=== PATIENT | female | born 1960 | race Caucasian/White ===

== ENCOUNTER 2018-06-03 14:58 | Inpatient (IN) | payer MEDICAID ==
[~2018-06-03] VITALS: Ht 167.6 cm; Wt 84.1 kg
[~2018-06-03 14:58] MED LIST: CLON-527 PO; EST1T PO; FLUO20CA39 PO; HYDR-3964 PO; IBUP-1986 PO; LISI1TAB9 PO; OMEP-84 PO
[2018-06-03] MEDS ORDERED: naproxen 500mg tablet PO ONE (16:15)
[2018-06-03 16:37] LABS: CLARITY,URINE CLEAR (Clear); COLOR,URINE YELLOW (Yellow); GLUCOSE, URINE NEGATIVE (Neg); KETONES,URINE NEGATIVE (Neg); LEUKOCYTE ESTERASE ,URINE NEGATIVE (Neg); NITRITES, URINE NEGATIVE (Neg); OCCULT BLOOD,URINE NEGATIVE (Neg); PROTEIN,URINE NEGATIVE (Neg); UROBILINOGEN,URINE 0.2 E.U/dL (0.2-1.0)
[2018-06-03 16:39] LABS: UA COLLECTION TYPE CLN CATCH MIDSTREAM
[2018-06-03 17:11] LABS: ALANINE AMINOTRANSFERASE 22 U/L (12-78); ALBUMIN 3.2 G/DL (3.4-5.0); ALBUMIN/GLOBULIN RATIO 0.9 (1.1-1.5); ALKALINE PHOSPHATASE 89 IU/L (46-116); ANION GAP 9 (8-16); ASPARTATE AMINO TRANSFERASE 13 U/L (10-37); BASOPHILS % (AUTO) 0.5 % (0-1); BILIRUBIN,TOTAL 0.3 MG/DL (0.1-1.0); BLOOD UREA NITROGEN 10 MG/DL (7-18); BUN/CREATININE RATIO 13.9 (6.6-38.0); CALCIUM 8.8 MG/DL (8.5-10.1); CHLORIDE 106 MMOL/L (99-107); CREATININE 0.72 MG/DL (0.40-0.90); EOSINOPHILS # (AUTO) 0.2 X10'3 (0-0.9); EOSINOPHILS % (AUTO) 2.2 % (0-6); GLUCOSE 78 MG/DL (70-104); HEMATOCRIT 40.7 % (35.0-45.0); HEMOGLOBIN 13.7 g/dl (12.0-16.0); LIPASE 1371 U/L (73-393); LYMPHOCYTES # (AUTO) 1.9 X10'3 (1.1-4.8); LYMPHOCYTES % (AUTO) 20.2 % (21-51); MAGNESIUM 1.9 MG/DL (1.5-2.4); MEAN CORPUSCULAR HEMOGLOBIN 30.6 PG (27.0-31.0); MEAN CORPUSCULAR HGB CONC 33.6 g/dL (33.0-36.5); MEAN CORPUSCULAR VOLUME 91.1 FL (78-98); MEAN PLATELET VOLUME 9.7 FL (7.4-10.4); MONOCYTES # (AUTO) 0.9 X10'3 (0-0.9); MONOCYTES % (AUTO) 9.1 % (2-12); NEUTROPHILS # (AUTO) 6.4 X10'3 (1.8-7.7); PLATELET COUNT 219 X10'3 (140-440); POTASSIUM 3.6 MMOL/L (3.5-5.1); RED BLOOD COUNT 4.47 X10'6 (4.20-5.60); RED CELL DISTRIBUTION WIDTH 13.6 % (11.5-14.5); SODIUM 142 MMOL/L (135-145); TOTAL CARBON DIOXIDE 26.8 MMOL/L (24-32); TOTAL PROTEIN 6.9 G/DL (6.4-8.2); WHITE BLOOD COUNT 9.4 X10'3 (4.5-11.0); eGFR 84 ML/MIN
[2018-06-03] MEDS ORDERED: morphine 4 MG/ML inj SYRINge IV ONE ×2 (17:25→17:55)
[2018-06-03] MEDS ORDERED: normal saline 1000ML IV soln IVB ONE ×2 (17:25→17:55)
[2018-06-03 17:43] LABS: ETHANOL < 0.010 GM/DL (0.0-0.010)
[2018-06-03] MEDS: normal saline 1000ml 1,000 ML IV SCH (17:51)
[2018-06-03] MEDS ORDERED: morphine 2 MG/ML inj. syringe IV PRN (17:55)
[2018-06-03] MEDS ORDERED: magnesium hydroxide 30ml (MOM) UD suspension PO PRN (17:55)
[2018-06-03] MEDS ORDERED: ondansetron/PF 4mg/2ml inj IV PRN (17:55)
[2018-06-03] MEDS ORDERED: mag hydrox/Alum hydrox/simeth 30ml oral suspension PO PRN (17:55)
[2018-06-03] MEDS ORDERED: acetaminophen 325mg tablet PO PRN (17:55)
[2018-06-03 19:22] LABS: URINE AMPHETAMINE SCREEN NEGATIVE (Neg); URINE BARBITUATE SCREEN NEGATIVE (Neg); URINE BENZODIAZEPINES SCREEN NEGATIVE (Neg); URINE CANNABINOID SCREEN POSITIVE (Neg); URINE COCAINE SCREEN NEGATIVE (Neg); URINE METHADONE SCREEN NEGATIVE (Neg); URINE OPIATE SCREEN NEGATIVE (Neg); URINE PHENCYCLIDINE SCREEN NEGATIVE (Neg)
--- NOTE | 2018-06-03 19:32 | NUR ---
STATES PAIN TOLEARABLE AT 4/10 AFTER MORPHINE.
[2018-06-03 20:32] VITALS: BP 144/81
[2018-06-03 22:00] VITALS: BP 104/57
[2018-06-03] MEDS: heparin, porcine 5000 units/ml vial SQ SCH (22:25)
[2018-06-03] MEDS: morphine 2 MG/ML inj. syringe IV PRN (22:25)
[2018-06-04 02:00] VITALS: BP 97/49
[2018-06-04] MEDS: morphine 2 MG/ML inj. syringe IV PRN ×5 (02:47→23:20)
[2018-06-04] MEDS: normal saline 1000ml 1,000 ML IV SCH ×3 (02:47→13:51)
[2018-06-04 03:57] VITALS: BP 103/58
--- NOTE | 2018-06-04 06:31 | NUR ---
REPORT GIVEN TO EMILIANO ZENG.
[2018-06-04 07:19] LABS: BASOPHILS % (AUTO) 0.8 % (0-1); EOSINOPHILS # (AUTO) 0.2 X10'3 (0-0.9); EOSINOPHILS % (AUTO) 4.1 % (0-6); HEMATOCRIT 37.7 % (35.0-45.0); HEMOGLOBIN 12.8 g/dl (12.0-16.0); LYMPHOCYTES # (AUTO) 1.8 X10'3 (1.1-4.8); LYMPHOCYTES % (AUTO) 34.2 % (21-51); MEAN CORPUSCULAR HEMOGLOBIN 31.2 PG (27.0-31.0); MEAN CORPUSCULAR HGB CONC 33.9 g/dL (33.0-36.5); MEAN CORPUSCULAR VOLUME 91.9 FL (78-98); MEAN PLATELET VOLUME 9.7 FL (7.4-10.4); MONOCYTES # (AUTO) 0.5 X10'3 (0-0.9); NEUTROPHILS # (AUTO) 2.7 X10'3 (1.8-7.7); NEUTROPHILS % (AUTO) 50.9 % (42-75); PLATELET COUNT 185 X10'3 (140-440); RED CELL DISTRIBUTION WIDTH 13.4 % (11.5-14.5); WHITE BLOOD COUNT 5.2 X10'3 (4.5-11.0)
[2018-06-04 07:37] LABS: ALANINE AMINOTRANSFERASE 243 U/L (12-78); ALBUMIN 2.7 G/DL (3.4-5.0); ALBUMIN/GLOBULIN RATIO 0.8 (1.1-1.5); ALKALINE PHOSPHATASE 102 IU/L (46-116); ANION GAP 5 (8-16); ASPARTATE AMINO TRANSFERASE 289 U/L (10-37); BILIRUBIN,TOTAL 0.7 MG/DL (0.1-1.0); BLOOD UREA NITROGEN 8 MG/DL (7-18); BUN/CREATININE RATIO 11.8 (6.6-38.0); CALCIUM 8.1 MG/DL (8.5-10.1); CHLORIDE 110 MMOL/L (99-107); CREATININE 0.68 MG/DL (0.40-0.90); GLUCOSE 95 MG/DL (70-104); POTASSIUM 3.9 MMOL/L (3.5-5.1); SODIUM 142 MMOL/L (135-145); TOTAL CARBON DIOXIDE 26.6 MMOL/L (24-32); TOTAL PROTEIN 6.1 G/DL (6.4-8.2); eGFR 90 ML/MIN
--- NOTE | 2018-06-04 08:13 | NUR ---
upon entering room to care for my patient in A bed, B bed IV was alarming from air bubble. Attempt to fix alarm. Patient is argumentative, rude, verbally abusive! Primary RN notified
[2018-06-04] MEDS: heparin, porcine 5000 units/ml vial SQ SCH ×2 (08:22→19:16)
[2018-06-04 09:24] LABS: LIPASE 429 U/L (73-393)
[2018-06-04 10:00] VITALS: BP 118/71
[2018-06-04] MEDS ORDERED: nicotine 14mg patch - 24hr TD PRN (10:00)
[2018-06-04] MEDS ORDERED: TRAZ-219 PO (10:22)
[2018-06-04 13:43] LABS: CHOL/HDL RATIO 5.6 (0.00-4.99); CHOLESTEROL 202 MG/DL (0-200); HDL CHOLESTEROL 36 MG/DL (35-60); LDL CHOLESTEROL 144 MG/DL (50-100); TRIGLYCERIDES 103 MG/DL (20-135)
[2018-06-04 18:30] VITALS: BP 117/57
[2018-06-04] MEDS ORDERED: traZODone 50mg tablet PO PRN (21:00)
[2018-06-04 23:00] VITALS: BP 112/53
[2018-06-05] MEDS: normal saline 1000ml 1,000 ML IV SCH ×2 (00:16→09:40)
[2018-06-05 05:17] LABS: BASOPHILS % (AUTO) 0.7 % (0-1); EOSINOPHILS # (AUTO) 0.2 X10'3 (0-0.9); HEMOGLOBIN 12.8 g/dl (12.0-16.0); LYMPHOCYTES # (AUTO) 1.7 X10'3 (1.1-4.8); LYMPHOCYTES % (AUTO) 31.2 % (21-51); MEAN CORPUSCULAR HEMOGLOBIN 30.8 PG (27.0-31.0); MEAN CORPUSCULAR HGB CONC 33.8 g/dL (33.0-36.5); MEAN CORPUSCULAR VOLUME 91.3 FL (78-98); MEAN PLATELET VOLUME 9.6 FL (7.4-10.4); MONOCYTES # (AUTO) 0.4 X10'3 (0-0.9); MONOCYTES % (AUTO) 8.2 % (2-12); NEUTROPHILS % (AUTO) 55.9 % (42-75); PLATELET COUNT 190 X10'3 (140-440); RED BLOOD COUNT 4.16 X10'6 (4.20-5.60); RED CELL DISTRIBUTION WIDTH 13.2 % (11.5-14.5); WHITE BLOOD COUNT 5.4 X10'3 (4.5-11.0)
[2018-06-05 05:37] LABS: ALANINE AMINOTRANSFERASE 195 U/L (12-78); ALBUMIN 2.9 G/DL (3.4-5.0); ALBUMIN/GLOBULIN RATIO 0.8 (1.1-1.5); ALKALINE PHOSPHATASE 116 IU/L (46-116); ANION GAP 8 (8-16); ASPARTATE AMINO TRANSFERASE 93 U/L (10-37); BILIRUBIN,TOTAL 0.4 MG/DL (0.1-1.0); BLOOD UREA NITROGEN 7 MG/DL (7-18); BUN/CREATININE RATIO 10.3 (6.6-38.0); CALCIUM 8.5 MG/DL (8.5-10.1); CHLORIDE 108 MMOL/L (99-107); CREATININE 0.68 MG/DL (0.40-0.90); GLUCOSE 96 MG/DL (70-104); SODIUM 141 MMOL/L (135-145); TOTAL CARBON DIOXIDE 25.4 MMOL/L (24-32); TOTAL PROTEIN 6.4 G/DL (6.4-8.2); eGFR 90 ML/MIN
--- NOTE | 2018-06-05 06:24 | NUR ---
Problems reprioritized. Patient report given, questions answered & plan of care reviewed with JAMILAH CONNOR RN. Addendum: 06/05/18 at 0625 by Houston Fermin RN Amended: Links added.
[2018-06-05] MEDS: heparin, porcine 5000 units/ml vial SQ SCH (07:09)
[2018-06-05] MEDS: morphine 2 MG/ML inj. syringe IV PRN ×2 (07:09→12:11)
[2018-06-05] MEDS ORDERED: pantoprazole 40mg Tablet.DR PO SCH (07:30)
--- NOTE | 2018-06-05 14:05 | NUR ---
RESPONDED TO PT CALL LIGHT AND PT WAS SITTING AT THE EDGE OF THE BED. PT STATED "IM NOT WAITING 2 HOURS TO GET THIS TEST DONE, I WANT TO GO HOME I HAVE ALREADY ATE FOOD FROM HOME AND AM GOING TO LEAVE, TAKE THIS IV OUT PLEASE." I ASKED IF I COULD GO TO CALL THE DR AND SHE SAID "NO THANK YOU IM LEAVING NOW". IV REMOVED AND AMA PAPER SIGNED ON THE WAY DOWN THE [address]. PT EDUCATED ON RISKS AND BENEFIT OF STAYING.
== END 2018-06-05 13:55 | disposition left against medical advice (07) | DRG 282 ==
LOC: ER 14:59 → ORTHO 4S 17:51 → EDBEDREQSVC 19:47 → CMPBEDREQ 06-04 00:22 → ORTHO 4S 06-04 04:55
PROVIDERS: ADMIT Family Medicine; ATTEND Family Medicine
DX: K85.90 Acute pancreatitis without necrosis or infection, unspecified (principal); E66.01 Morbid (severe) obesity due to excess calories; F12.90 Cannabis use, unspecified, uncomplicated; F17.210 Nicotine dependence, cigarettes, uncomplicated; G89.29 Other chronic pain; I10 Essential (primary) hypertension; K21.9 Gastro-esophageal reflux disease without esophagitis; F32.9 Major depressive disorder, single episode, unspecified; F41.9 Anxiety disorder, unspecified; M54.9 Dorsalgia, unspecified; M48.061 Spinal stenosis, lumbar region without neurogenic claudication; M54.10 Radiculopathy, site unspecified; Z68.29 Body mass index [BMI] 29.0-29.9, adult; Z90.710 Acquired absence of both cervix and uterus; Z79.899 Other long term (current) drug therapy; Z90.49 Acquired absence of other specified parts of digestive tract
CPT/HCPCS: 36415; 72131; 76700; 80053; 80061; 80305; 80320; 81003; 83690; 83735; 85025; 87070; 93005; 99285; G0378; J1644; J2270; J7030

== ENCOUNTER 2020-06-03 16:43 | Inpatient (IN) | payer MEDICAID ==
[~2020-06-03] VITALS: Ht 167.6 cm; Wt 84.0 kg
[~2020-06-03 16:43] MED LIST changes: -CLON-527 PO; -EST1T PO; -FLUO20CA39 PO; -HYDR-3964 PO; -LISI1TAB9 PO; +TRAZ-256 PO
--- NOTE | 2020-06-03 16:58 | NUR ---
ASSISTING RN WITH PT CARE, REPORT GIVEN TO DAVE CUMMINGS
[2020-06-03] MEDS ORDERED: normal saline 1000ML IV soln IV ONE (18:55)
[2020-06-03 19:06] LABS: BASOPHILS # (AUTO) 0.1 X10'3 (0-0.2); BASOPHILS % (AUTO) 0.7 % (0-1); EOSINOPHILS # (AUTO) 0.2 X10'3 (0-0.9); EOSINOPHILS % (AUTO) 1.5 % (0-6); HEMATOCRIT 39.5 % (35.0-45.0); HEMOGLOBIN 13.2 g/dl (12.0-16.0); LYMPHOCYTES # (AUTO) 1.2 X10'3 (1.1-4.8); LYMPHOCYTES % (AUTO) 8.5 % (21-51); MEAN CORPUSCULAR HEMOGLOBIN 30.1 PG (27.0-31.0); MEAN CORPUSCULAR HGB CONC 33.5 g/dL (33.0-36.5); MEAN CORPUSCULAR VOLUME 89.9 FL (78-98); MEAN PLATELET VOLUME 9.9 FL (7.4-10.4); MONOCYTES # (AUTO) 0.9 X10'3 (0-0.9); MONOCYTES % (AUTO) 6.1 % (2-12); NEUTROPHILS # (AUTO) 11.8 X10'3 (1.8-7.7); NEUTROPHILS % (AUTO) 83.2 % (42-75); PLATELET COUNT 263 X10'3 (140-440); RED CELL DISTRIBUTION WIDTH 14.9 % (11.5-14.5); WHITE BLOOD COUNT 14.1 X10'3 (4.5-11.0)
[2020-06-03 19:14] LABS: ALANINE AMINOTRANSFERASE 39 U/L (12-78); ALBUMIN 2.3 G/DL (3.4-5.0); ALBUMIN/GLOBULIN RATIO 0.5 (1.1-1.5); ALKALINE PHOSPHATASE 170 IU/L (46-116); ANION GAP 11 (8-16); ASPARTATE AMINO TRANSFERASE 42 U/L (10-37); BILIRUBIN,TOTAL 0.6 MG/DL (0.1-1.0); BLOOD UREA NITROGEN 14 MG/DL (7-18); BUN/CREATININE RATIO 13.7 (6.6-38.0); CALCIUM 8.3 MG/DL (8.5-10.1); CHLORIDE 99 MMOL/L (99-107); CREATININE 1.02 MG/DL (0.40-0.90); GLUCOSE 140 MG/DL (70-104); MAGNESIUM 1.7 MG/DL (1.5-2.4); SODIUM 135 MMOL/L (135-145); TOTAL CARBON DIOXIDE 24.9 MMOL/L (24-32); TOTAL PROTEIN 7.3 G/DL (6.4-8.2); eGFR 56 ML/MIN
--- NOTE | 2020-06-03 19:16 | NUR ---
Patient is with Dr. Martin
[2020-06-03 19:17] LABS: POTASSIUM 3.1 MMOL/L (3.5-5.1)
[2020-06-03] MEDS ORDERED: proCHLORperazine 10 MG/2 ml inj IV ONE (19:30)
[2020-06-03] MEDS ORDERED: CefTRIAXone 2gm/D5W 50ml BAG 50 ML IV ONE (19:30)
[2020-06-03] MEDS ORDERED: magnesium hydroxide 30ml (MOM) UD suspension PO PRN (19:35)
[2020-06-03] MEDS ORDERED: mag hydrox/Alum hydrox/simeth 30ml oral suspension PO PRN (19:35)
[2020-06-03] MEDS ORDERED: vancomycin/NS 1 GM ADD-VANTAGE 250 ML X 1 DOSE IV ONE (19:35)
[2020-06-03] MEDS ORDERED: acetaminophen 325mg tablet PO PRN (19:35)
[2020-06-03] MEDS ORDERED: potassium Cl 40MEQ/1/2NS 520ml 520 ML IV PRN ×2 (19:35)
[2020-06-03] MEDS ORDERED: HYDROcodone/acetaminophen 5mg/325mg tablet PO PRN (19:35)
[2020-06-03] MEDS ORDERED: ondansetron/PF 4mg/2ml inj IV PRN (19:35)
[2020-06-03 19:58] LABS: HEMOGLOBIN A1C 6.1 % (4.5-6.2)
[2020-06-03] MEDS: K and/or MAG REPLACEMENT MC SCH (20:00)
[2020-06-03] MEDS: morphine 2 MG/ML inj. syringe IV PRN ×2 (20:19→22:18)
[2020-06-03] MEDS: normal saline 1000ml 1,000 ML IV SCH (20:22)
[2020-06-03] MEDS: heparin, porcine 5000 units/ml vial SQ SCH (21:23)
--- NOTE | 2020-06-03 22:00 | NUR ---
Patient in room [facility]. I have received report from Danielle CUMMINGS and had the opportunity to ask questions and assume patient care.
[2020-06-03 22:15] VITALS: BP 135/72
[2020-06-03 23:03] LABS: CLARITY,URINE CLEAR (Clear); COLOR,URINE YELLOW (Yellow); GLUCOSE, URINE NEGATIVE (Neg); KETONES,URINE NEGATIVE (Neg); LEUKOCYTE ESTERASE ,URINE NEGATIVE (Neg); NITRITES, URINE NEGATIVE (Neg); OCCULT BLOOD,URINE TRACE-INTACT (Neg); PH,URINE 5.5 (4.8-8.0); PROTEIN,URINE TRACE mg/dl (Neg); URINE HCG NEGATIVE (NEG)
[2020-06-03 23:09] LABS: UA COLLECTION TYPE CLN CATCH MIDSTREAM
[2020-06-03 23:11] LABS: BACTERIA,URINE 1+ /HPF (Neg); MUCUS STRANDS MODERATE /LPF (Neg); RBC,URINE NONE SEEN /HPF (0-2); SQUAMOUS EPITHELIAL CELL,UR MODERATE /LPF (FEW); WBC,URINE 0-4 /HPF (0-4)
[2020-06-03] MEDS: potassium Cl 20 mEq SR tablet PO PRN (23:16)
[2020-06-03] MEDS: gabapentin 300mg capsule PO SCH (23:16)
[2020-06-04] VITALS: BP 117/71
[2020-06-04] MEDS ORDERED: GABA300C PO (02:09)
[2020-06-04] MEDS ORDERED: FLUO-167 PO (02:09)
[2020-06-04] MEDS: HYDROcodone/acetaminophen 10/325mg tab PO PRN ×3 (03:28→17:37)
[2020-06-04] MEDS: potassium Cl 20 mEq SR tablet PO PRN ×4 (03:28→21:27)
[2020-06-04] MEDS: normal saline 1000ml 1,000 ML IV SCH ×3 (04:59→21:22)
[2020-06-04 06:06] LABS: BASOPHILS % (AUTO) 0.2 % (0-1); EOSINOPHILS # (AUTO) 0.1 X10'3 (0-0.9); EOSINOPHILS % (AUTO) 0.7 % (0-6); HEMATOCRIT 32.9 % (35.0-45.0); HEMOGLOBIN 10.8 g/dl (12.0-16.0); LYMPHOCYTES # (AUTO) 0.9 X10'3 (1.1-4.8); LYMPHOCYTES % (AUTO) 6.9 % (21-51); MEAN CORPUSCULAR HEMOGLOBIN 29.1 PG (27.0-31.0); MEAN CORPUSCULAR HGB CONC 32.9 g/dL (33.0-36.5); MEAN CORPUSCULAR VOLUME 88.6 FL (78-98); MEAN PLATELET VOLUME 9.1 FL (7.4-10.4); MONOCYTES # (AUTO) 1.1 X10'3 (0-0.9); MONOCYTES % (AUTO) 8.6 % (2-12); NEUTROPHILS # (AUTO) 11.2 X10'3 (1.8-7.7); NEUTROPHILS % (AUTO) 83.6 % (42-75); PLATELET COUNT 225 X10'3 (140-440); RED BLOOD COUNT 3.71 X10'6 (4.20-5.60); RED CELL DISTRIBUTION WIDTH 14.7 % (11.5-14.5); WHITE BLOOD COUNT 13.3 X10'3 (4.5-11.0)
[2020-06-04 06:08] LABS: ALANINE AMINOTRANSFERASE 38 U/L (12-78); ALBUMIN 1.7 G/DL (3.4-5.0); ALBUMIN/GLOBULIN RATIO 0.4 (1.1-1.5); ALKALINE PHOSPHATASE 148 IU/L (46-116); ANION GAP 11 (8-16); ASPARTATE AMINO TRANSFERASE 34 U/L (10-37); BILIRUBIN,TOTAL 0.7 MG/DL (0.1-1.0); BLOOD UREA NITROGEN 9 MG/DL (7-18); BUN/CREATININE RATIO 9.1 (6.6-38.0); CALCIUM 7.7 MG/DL (8.5-10.1); CHLORIDE 103 MMOL/L (99-107); CREATININE 0.99 MG/DL (0.40-0.90); GLUCOSE 174 MG/DL (70-104); SODIUM 137 MMOL/L (135-145); TOTAL CARBON DIOXIDE 23.3 MMOL/L (24-32); TOTAL PROTEIN 5.8 G/DL (6.4-8.2); eGFR 58 ML/MIN
[2020-06-04 06:20] LABS: POTASSIUM 2.7 MMOL/L (3.5-5.1)
--- NOTE | 2020-06-04 06:30 | NUR ---
Problems reprioritized. Patient report given, questions answered & plan of care reviewed with Trey RN.
--- NOTE | 2020-06-04 06:32 | NUR ---
Patient in room [facility]. I have received report from Chely CUMMINGS and had the opportunity to ask questions and assume patient care.
[2020-06-04 07:04] VITALS: BP 114/65
--- NOTE | 2020-06-04 07:30 | NUR ---
PAGER ID: [phone] MESSAGE: Trey Surg [id number] re: Tabatha MUÑIZ 348b Patient has K of 2.7. Will start replacement at this time. Thanks
[2020-06-04] MEDS ORDERED: CefTRIAXone/D5W-Rocephin 1gm 50 ML IV SCH (08:00)
[2020-06-04] MEDS ORDERED: FLUoxetine 20mg capsule PO SCH (08:00)
[2020-06-04] MEDS: K and/or MAG REPLACEMENT MC SCH ×3 (08:00→20:00)
[2020-06-04] MEDS: gabapentin 300mg capsule PO SCH ×3 (08:49→21:23)
[2020-06-04] MEDS: heparin, porcine 5000 units/ml vial SQ SCH ×2 (09:07→21:24)
[2020-06-04] MEDS ORDERED: magnesium Cl slow-release 64mg tablet PO PRN (09:35)
[2020-06-04] MEDS ORDERED: magnesium 4gm in 100ml NS 100 ML IV PRN (09:35)
[2020-06-04] MEDS ORDERED: traZODone 50mg tablet PO PRN (09:35)
[2020-06-04 10:30] VITALS: BP 125/68
--- NOTE | 2020-06-04 10:50 | NUR ---
Last BM on patient reports no Bowel movement today Addendum: 06/04/20 at 1053 by Emmanuel DEWEY Amended: Links added.
[2020-06-04] MEDS: vancomycin/NS 1 GM ADD-VANTAGE 250 ML IV SCH ×2 (11:11→21:21)
[2020-06-04] MEDS: morphine 2 MG/ML inj. syringe IV PRN (11:43)
--- NOTE | 2020-06-04 11:52 | NUR ---
PAGER ID: [phone] MESSAGE: Trey Surg [id number] Re: [id number] Glennyavery, Recommended by wound care for venous ultra sound LLE R/O DVT, she has increased pain. Thanks Trey.
--- NOTE | 2020-06-04 18:36 | NUR ---
Problems reprioritized. Patient report given, questions answered & plan of care reviewed with Danielle CUMMINGS.
--- NOTE | 2020-06-04 19:11 | NUR ---
Patient in room [facility]. I have received report from Trey CUMMINGS and had the opportunity to ask questions and assume patient care.
--- NOTE | 2020-06-04 19:11 | NUR ---
Patient in room [facility]. I have received report from EMILIANO Yang and had the opportunity to ask questions and assume patient care.
[2020-06-04 20:00] VITALS: BP 124/64
[2020-06-04] MEDS: lactobacillus rhamnosus 10,000 MMU CELLS/CAPSULE PO SCH (21:21)
[2020-06-04] MEDS: FLUoxetine 20mg capsule PO SCH (21:22)
[2020-06-04 23:44] VITALS: BP 126/62
[2020-06-05] MEDS: HYDROcodone/acetaminophen 10/325mg tab PO PRN ×3 (02:37→14:51)
[2020-06-05] MEDS: cefepime 1GM in D5W 50mL 50 ML IV SCH ×3 (02:43→16:23)
--- NOTE | 2020-06-05 06:52 | NUR ---
Problems reprioritized. Patient report given, questions answered & plan of care reviewed with Nichelle CUMMINGS.
--- NOTE | 2020-06-05 06:53 | NUR ---
Problems reprioritized. Patient report given, questions answered & plan of care reviewed with EMILIANO Steward.
--- NOTE | 2020-06-05 07:20 | NUR ---
Patient in room [facility]. I have received report from EMILIANO Padilla and had the opportunity to ask questions and assume patient care.
[2020-06-05] MEDS ORDERED: VANCOMYCIN LEVEL IV ONE (07:30)
[2020-06-05 08:00] VITALS: BP 108/66
[2020-06-05] MEDS: K and/or MAG REPLACEMENT MC SCH ×4 (08:00→20:00)
[2020-06-05] MEDS: vancomycin/NS 1 GM ADD-VANTAGE 250 ML IV SCH (08:39)
[2020-06-05] MEDS: FLUoxetine 20mg capsule PO SCH ×2 (08:45→21:58)
[2020-06-05] MEDS: lactobacillus rhamnosus 10,000 MMU CELLS/CAPSULE PO SCH ×2 (08:45→21:58)
[2020-06-05] MEDS: gabapentin 300mg capsule PO SCH ×3 (08:45→21:58)
[2020-06-05] MEDS: heparin, porcine 5000 units/ml vial SQ SCH ×2 (08:46→22:00)
[2020-06-05] MEDS: pantoprazole 40mg Tablet.DR PO SCH (08:48)
[2020-06-05 09:05] LABS: BASOPHILS % (AUTO) 0.3 % (0-1); EOSINOPHILS # (AUTO) 0.2 X10'3 (0-0.9); EOSINOPHILS % (AUTO) 1.5 % (0-6); HEMATOCRIT 36.4 % (35.0-45.0); HEMOGLOBIN 11.9 g/dl (12.0-16.0); LYMPHOCYTES # (AUTO) 1.6 X10'3 (1.1-4.8); MEAN CORPUSCULAR HEMOGLOBIN 29.2 PG (27.0-31.0); MEAN CORPUSCULAR HGB CONC 32.8 g/dL (33.0-36.5); MEAN CORPUSCULAR VOLUME 89.2 FL (78-98); MEAN PLATELET VOLUME 8.7 FL (7.4-10.4); MONOCYTES # (AUTO) 1.2 X10'3 (0-0.9); MONOCYTES % (AUTO) 7.9 % (2-12); NEUTROPHILS # (AUTO) 11.8 X10'3 (1.8-7.7); NEUTROPHILS % (AUTO) 79.3 % (42-75); PLATELET COUNT 270 X10'3 (140-440); RED BLOOD COUNT 4.08 X10'6 (4.20-5.60); RED CELL DISTRIBUTION WIDTH 15.3 % (11.5-14.5); WHITE BLOOD COUNT 14.9 X10'3 (4.5-11.0)
[2020-06-05 09:12] LABS: ALANINE AMINOTRANSFERASE 53 U/L (12-78); ALBUMIN 1.9 G/DL (3.4-5.0); ALBUMIN/GLOBULIN RATIO 0.4 (1.1-1.5); ALKALINE PHOSPHATASE 211 IU/L (46-116); ANION GAP 10 (8-16); ASPARTATE AMINO TRANSFERASE 46 U/L (10-37); BLOOD UREA NITROGEN 9 MG/DL (7-18); BUN/CREATININE RATIO 10.8 (6.6-38.0); CALCIUM 8.2 MG/DL (8.5-10.1); CHLORIDE 104 MMOL/L (99-107); CREATININE 0.83 MG/DL (0.40-0.90); GLUCOSE 108 MG/DL (70-104); POTASSIUM 3.3 MMOL/L (3.5-5.1); SODIUM 139 MMOL/L (135-145); TOTAL CARBON DIOXIDE 25.4 MMOL/L (24-32); TOTAL PROTEIN 6.8 G/DL (6.4-8.2); eGFR 71 ML/MIN
[2020-06-05 09:14] LABS: MAGNESIUM 1.6 MG/DL (1.5-2.4); PHOSPHORUS 2.8 MG/DL (2.3-4.5); VANCOMYCIN,TROUGH 9.4 UG/ML (6.0-14.0)
[2020-06-05] MEDS: morphine 2 MG/ML inj. syringe IV PRN (10:17)
[2020-06-05 11:00] VITALS: BP 117/61
[2020-06-05] MEDS ORDERED: nicotine 21mg patch - 24 hr TD ONE (11:35)
[2020-06-05] MEDS: normal saline 1000ml 1,000 ML IV SCH ×2 (14:55→21:35)
[2020-06-05] MEDS ORDERED: GADOTERATE MEGLUMINE 7.5 MMOL/15 ML VIAL IV ONE (15:44)
[2020-06-05] MEDS: potassium Cl 20 mEq SR tablet PO PRN ×2 (16:42→21:57)
--- NOTE | 2020-06-05 19:05 | NUR ---
Problems reprioritized. Patient report given, questions answered & plan of care reviewed with EMILIANO Padilla.
--- NOTE | 2020-06-05 19:05 | NUR ---
Patient in room [facility]. I have received report from EMILIANO Steward and had the opportunity to ask questions and assume patient care.
--- NOTE | 2020-06-05 19:10 | NUR ---
Patient in room [facility]. I have received report from Nichelle CUMMINGS and had the opportunity to ask questions and assume patient care.
[2020-06-05 20:00] VITALS: BP 135/80
[2020-06-05] MEDS: VANCOmycin 1250MG/NS 250ml Bag 250 ML IV SCH (22:02)
[2020-06-06] VITALS: BP 132/78
[2020-06-06] MEDS: HYDROcodone/acetaminophen 10/325mg tab PO PRN ×3 (00:57→20:25)
[2020-06-06] MEDS: cefepime 1GM in D5W 50mL 50 ML IV SCH ×4 (01:18→23:49)
[2020-06-06] MEDS: potassium Cl 20 mEq SR tablet PO PRN ×4 (04:08→23:54)
[2020-06-06] MEDS: normal saline 1000ml 1,000 ML IV SCH ×2 (04:08→17:18)
--- NOTE | 2020-06-06 06:22 | NUR ---
Problems reprioritized. Patient report given, questions answered & plan of care reviewed with Nichelle CUMMINGS.
--- NOTE | 2020-06-06 06:31 | NUR ---
Problems reprioritized. Patient report given, questions answered & plan of care reviewed with EMILIANO Steward.
--- NOTE | 2020-06-06 06:48 | NUR ---
Patient in room [facility]. I have received report from EMILIANO Santos and had the opportunity to ask questions and assume patient care.
[2020-06-06 06:59] LABS: BASOPHILS % (AUTO) 0.3 % (0-1); EOSINOPHILS # (AUTO) 0.2 X10'3 (0-0.9); EOSINOPHILS % (AUTO) 1.7 % (0-6); HEMATOCRIT 32.1 % (35.0-45.0); HEMOGLOBIN 10.7 g/dl (12.0-16.0); LYMPHOCYTES # (AUTO) 1.5 X10'3 (1.1-4.8); LYMPHOCYTES % (AUTO) 11.5 % (21-51); MEAN CORPUSCULAR HEMOGLOBIN 29.6 PG (27.0-31.0); MEAN CORPUSCULAR HGB CONC 33.4 g/dL (33.0-36.5); MEAN CORPUSCULAR VOLUME 88.8 FL (78-98); MEAN PLATELET VOLUME 8.5 FL (7.4-10.4); MONOCYTES # (AUTO) 0.9 X10'3 (0-0.9); MONOCYTES % (AUTO) 7.3 % (2-12); NEUTROPHILS # (AUTO) 10.1 X10'3 (1.8-7.7); NEUTROPHILS % (AUTO) 79.2 % (42-75); PLATELET COUNT 289 X10'3 (140-440); RED BLOOD COUNT 3.61 X10'6 (4.20-5.60); RED CELL DISTRIBUTION WIDTH 15.2 % (11.5-14.5); WHITE BLOOD COUNT 12.7 X10'3 (4.5-11.0)
[2020-06-06 07:19] LABS: ALANINE AMINOTRANSFERASE 60 U/L (12-78); ALBUMIN 1.5 G/DL (3.4-5.0); ALBUMIN/GLOBULIN RATIO 0.3 (1.1-1.5); ALKALINE PHOSPHATASE 173 IU/L (46-116); ANION GAP 7 (8-16); ASPARTATE AMINO TRANSFERASE 49 U/L (10-37); BILIRUBIN,TOTAL 0.6 MG/DL (0.1-1.0); BLOOD UREA NITROGEN 9 MG/DL (7-18); BUN/CREATININE RATIO 11.7 (6.6-38.0); CHLORIDE 106 MMOL/L (99-107); CREATININE 0.77 MG/DL (0.40-0.90); GLUCOSE 93 MG/DL (70-104); MAGNESIUM 1.7 MG/DL (1.5-2.4); PHOSPHORUS 2.7 MG/DL (2.3-4.5); POTASSIUM 3.3 MMOL/L (3.5-5.1); SODIUM 138 MMOL/L (135-145); TOTAL CARBON DIOXIDE 24.6 MMOL/L (24-32); TOTAL PROTEIN 6.2 G/DL (6.4-8.2); eGFR 77 ML/MIN
[2020-06-06 08:00] VITALS: BP 116/65
[2020-06-06] MEDS: K and/or MAG REPLACEMENT MC SCH ×4 (08:00→20:00)
[2020-06-06] MEDS: pantoprazole 40mg Tablet.DR PO SCH (08:23)
[2020-06-06] MEDS: FLUoxetine 20mg capsule PO SCH ×2 (08:23→20:25)
[2020-06-06] MEDS: lactobacillus rhamnosus 10,000 MMU CELLS/CAPSULE PO SCH ×2 (08:23→20:27)
[2020-06-06] MEDS: gabapentin 300mg capsule PO SCH ×3 (08:24→20:26)
[2020-06-06] MEDS: heparin, porcine 5000 units/ml vial SQ SCH ×2 (08:25→20:28)
[2020-06-06] MEDS: nicotine 21mg patch - 24 hr TD SCH (08:25)
[2020-06-06] MEDS: morphine 2 MG/ML inj. syringe IV PRN (08:30)
[2020-06-06] MEDS: nystatin 15 GM powder TP SCH ×3 (08:34→20:32)
[2020-06-06] MEDS: VANCOmycin 1250MG/NS 250ml Bag 250 ML IV SCH ×2 (10:01→20:28)
[2020-06-06 12:00] VITALS: BP 140/71
[2020-06-06 18:00] VITALS: BP 135/75
--- NOTE | 2020-06-06 18:05 | NUR ---
Patient in room [facility]. I have received report from EMILIANO Steward and had the opportunity to ask questions and assume patient care.
--- NOTE | 2020-06-06 18:16 | NUR ---
Problems reprioritized. Patient report given, questions answered & plan of care reviewed with EMILIANO Jason. Dressing to LLE changed. mod amount of serous drainage noted; skin bright red, less swollen than yesterday.
--- NOTE | 2020-06-06 21:50 | NUR ---
Morphine 2 mg reassess not done at 0830 on 06/06.
[2020-06-06] MEDS ORDERED: potassium Cl 40MEQ/1/2NS 520ml 520 ML IV PRN (23:45)
[2020-06-06] MEDS ORDERED: magnesium Cl slow-release 64mg tablet PO PRN (23:45)
[2020-06-06] MEDS ORDERED: magnesium 4gm in 100ml NS 100 ML IV PRN (23:45)
[2020-06-06] MEDS ORDERED: potassium Cl 20 mEq SR tablet PO PRN (23:45)
[2020-06-07] VITALS: BP 113/50
[2020-06-07] MEDS: HYDROcodone/acetaminophen 10/325mg tab PO PRN ×3 (01:51→15:05)
[2020-06-07] MEDS: normal saline 1000ml 1,000 ML IV SCH ×3 (03:35→17:08)
--- NOTE | 2020-06-07 06:34 | NUR ---
Problems reprioritized. Patient report given, questions answered & plan of care reviewed with EMILIANO Otero.
[2020-06-07] MEDS: K and/or MAG REPLACEMENT MC SCH ×4 (07:18→20:00)
[2020-06-07] MEDS ORDERED: VANCOMYCIN LEVEL IV ONE (07:30)
[2020-06-07 07:43] LABS: BASOPHILS % (AUTO) 0.4 % (0-1); EOSINOPHILS # (AUTO) 0.2 X10'3 (0-0.9); EOSINOPHILS % (AUTO) 2.1 % (0-6); HEMATOCRIT 32.3 % (35.0-45.0); HEMOGLOBIN 10.9 g/dl (12.0-16.0); LYMPHOCYTES # (AUTO) 1.3 X10'3 (1.1-4.8); LYMPHOCYTES % (AUTO) 12.4 % (21-51); MEAN CORPUSCULAR HEMOGLOBIN 29.8 PG (27.0-31.0); MEAN CORPUSCULAR HGB CONC 33.7 g/dL (33.0-36.5); MEAN CORPUSCULAR VOLUME 88.6 FL (78-98); MEAN PLATELET VOLUME 8.4 FL (7.4-10.4); MONOCYTES # (AUTO) 0.7 X10'3 (0-0.9); MONOCYTES % (AUTO) 6.6 % (2-12); NEUTROPHILS # (AUTO) 8.1 X10'3 (1.8-7.7); NEUTROPHILS % (AUTO) 78.5 % (42-75); PLATELET COUNT 306 X10'3 (140-440); RED BLOOD COUNT 3.65 X10'6 (4.20-5.60); RED CELL DISTRIBUTION WIDTH 15.3 % (11.5-14.5); WHITE BLOOD COUNT 10.3 X10'3 (4.5-11.0)
[2020-06-07 07:49] LABS: ALANINE AMINOTRANSFERASE 88 U/L (12-78); ALBUMIN 1.6 G/DL (3.4-5.0); ALBUMIN/GLOBULIN RATIO 0.4 (1.1-1.5); ALKALINE PHOSPHATASE 188 IU/L (46-116); ANION GAP 7 (8-16); ASPARTATE AMINO TRANSFERASE 72 U/L (10-37); BILIRUBIN,TOTAL 0.7 MG/DL (0.1-1.0); BLOOD UREA NITROGEN 9 MG/DL (7-18); BUN/CREATININE RATIO 12.7 (6.6-38.0); CALCIUM 7.7 MG/DL (8.5-10.1); CHLORIDE 106 MMOL/L (99-107); CREATININE 0.71 MG/DL (0.40-0.90); GLUCOSE 100 MG/DL (70-104); MAGNESIUM 1.5 MG/DL (1.5-2.4); PHOSPHORUS 3.1 MG/DL (2.3-4.5); POTASSIUM 3.2 MMOL/L (3.5-5.1); SODIUM 141 MMOL/L (135-145); TOTAL CARBON DIOXIDE 27.9 MMOL/L (24-32); TOTAL PROTEIN 6.1 G/DL (6.4-8.2); VANCOMYCIN,TROUGH 13.5 UG/ML (6.0-14.0); eGFR 85 ML/MIN
[2020-06-07 08:00] VITALS: BP 135/77
[2020-06-07] MEDS: nystatin 15 GM powder TP SCH ×3 (08:02→22:00)
[2020-06-07] MEDS: cefepime 1GM in D5W 50mL 50 ML IV SCH ×2 (08:02→15:56)
[2020-06-07] MEDS: gabapentin 300mg capsule PO SCH ×3 (08:03→20:26)
[2020-06-07] MEDS: lactobacillus rhamnosus 10,000 MMU CELLS/CAPSULE PO SCH ×2 (08:03→20:26)
[2020-06-07] MEDS: FLUoxetine 20mg capsule PO SCH ×2 (08:03→20:27)
[2020-06-07] MEDS: heparin, porcine 5000 units/ml vial SQ SCH ×2 (08:03→20:28)
[2020-06-07] MEDS: pantoprazole 40mg Tablet.DR PO SCH (08:03)
[2020-06-07] MEDS: nicotine 21mg patch - 24 hr TD SCH (08:04)
[2020-06-07] MEDS: potassium Cl 20 mEq SR tablet PO PRN ×2 (10:17→15:56)
[2020-06-07] MEDS: VANCOMYCIN 1,500MG inj. 1,500 MG in normal saline 500ml IV soln 300 ML IV SCH ×2 (12:13→22:19)
[2020-06-07] MEDS ORDERED: furosemide 40mg/4ml inj IV ONE (16:05)
[2020-06-07 18:00] VITALS: BP 121/57
--- NOTE | 2020-06-07 18:06 | NUR ---
Problems reprioritized. Patient report given, questions answered & plan of care reviewed with Sean CUMMINGS and Christian CUMMINGS.
--- NOTE | 2020-06-07 18:26 | NUR ---
Patient in room [facility]. I have received report from EMILIANO Otero and had the opportunity to ask questions and assume patient care.
[2020-06-08] VITALS: BP 119/61
[2020-06-08] MEDS: HYDROcodone/acetaminophen 10/325mg tab PO PRN ×5 (00:20→23:26)
[2020-06-08] MEDS: cefepime 1GM in D5W 50mL 50 ML IV SCH ×3 (00:43→16:16)
--- NOTE | 2020-06-08 06:21 | NUR ---
Problems reprioritized. Patient report given, questions answered & plan of care reviewed with Lou and EMILIANO Stanley.
--- NOTE | 2020-06-08 06:22 | NUR ---
I agree with EMILIANO Gonzalessee supervisor, medication pass, and report to Lou and EMILIANO Stanley Addendum: 06/08/20 at 0625 by Sean Calderon RN disregard this note, wrong patient
--- NOTE | 2020-06-08 06:30 | NUR ---
Patient in room [facility]. I have received report from Sean CUMMINGS and had the opportunity to ask questions and assume patient care.
[2020-06-08 06:48] LABS: ALANINE AMINOTRANSFERASE 97 U/L (12-78); ALBUMIN 1.7 G/DL (3.4-5.0); ALBUMIN/GLOBULIN RATIO 0.4 (1.1-1.5); ALKALINE PHOSPHATASE 206 IU/L (46-116); ANION GAP 10 (8-16); ASPARTATE AMINO TRANSFERASE 74 U/L (10-37); BILIRUBIN,TOTAL 0.6 MG/DL (0.1-1.0); BLOOD UREA NITROGEN 7 MG/DL (7-18); CALCIUM 7.9 MG/DL (8.5-10.1); CHLORIDE 104 MMOL/L (99-107); CREATININE 0.78 MG/DL (0.40-0.90); GLUCOSE 102 MG/DL (70-104); MAGNESIUM 1.7 MG/DL (1.5-2.4); PHOSPHORUS 3.1 MG/DL (2.3-4.5); POTASSIUM 3.1 MMOL/L (3.5-5.1); SODIUM 141 MMOL/L (135-145); TOTAL CARBON DIOXIDE 27.4 MMOL/L (24-32); TOTAL PROTEIN 6.5 G/DL (6.4-8.2); eGFR 76 ML/MIN
--- NOTE | 2020-06-08 06:50 | NUR ---
Patient in room [facility]. I have received report from EMILIANO Estrada and had the opportunity to ask questions and assume patient care.
[2020-06-08 06:52] LABS: HEMOGLOBIN 10.5 g/dl (12.0-16.0)
[2020-06-08 06:55] LABS: BASOPHILS # (AUTO) 0.1 X10'3 (0-0.2); BASOPHILS % (AUTO) 0.7 % (0-1); EOSINOPHILS # (AUTO) 0.2 X10'3 (0-0.9); EOSINOPHILS % (AUTO) 2.4 % (0-6); LYMPHOCYTES # (AUTO) 1.4 X10'3 (1.1-4.8); LYMPHOCYTES % (AUTO) 15.1 % (21-51); MEAN CORPUSCULAR HGB CONC 33.7 g/dL (33.0-36.5); MEAN PLATELET VOLUME 8.8 FL (7.4-10.4); MONOCYTES # (AUTO) 0.6 X10'3 (0-0.9); MONOCYTES % (AUTO) 6.6 % (2-12); NEUTROPHILS # (AUTO) 7.1 X10'3 (1.8-7.7); NEUTROPHILS % (AUTO) 75.2 % (42-75); PLATELET COUNT 316 X10'3 (140-440); RED BLOOD COUNT 3.49 X10'6 (4.20-5.60); RED CELL DISTRIBUTION WIDTH 15.2 % (11.5-14.5); WHITE BLOOD COUNT 9.4 X10'3 (4.5-11.0)
[2020-06-08 06:56] VITALS: BP 141/74
[2020-06-08] MEDS: K and/or MAG REPLACEMENT MC SCH ×4 (08:00→20:00)
[2020-06-08] MEDS: nystatin 15 GM powder TP SCH ×3 (08:18→22:15)
[2020-06-08] MEDS: pantoprazole 40mg Tablet.DR PO SCH (08:21)
[2020-06-08] MEDS: lactobacillus rhamnosus 10,000 MMU CELLS/CAPSULE PO SCH ×2 (08:21→22:13)
[2020-06-08] MEDS: FLUoxetine 20mg capsule PO SCH ×2 (08:21→22:14)
[2020-06-08] MEDS: furosemide 40mg/4ml inj IV SCH (08:21)
[2020-06-08] MEDS: heparin, porcine 5000 units/ml vial SQ SCH ×2 (08:21→22:14)
[2020-06-08] MEDS: gabapentin 300mg capsule PO SCH ×3 (08:21→22:13)
[2020-06-08] MEDS: nicotine 21mg patch - 24 hr TD SCH (08:22)
[2020-06-08] MEDS: normal saline 1000ml 1,000 ML IV SCH (08:41)
[2020-06-08] MEDS: potassium Cl 20 mEq SR tablet PO PRN ×3 (10:07→22:14)
[2020-06-08] MEDS: VANCOMYCIN 1,500MG inj. 1,500 MG in normal saline 500ml IV soln 300 ML IV SCH ×2 (10:07→22:11)
[2020-06-08] MEDS ORDERED: ALPRAZolam 0.25mg tablet PO PRN (11:50)
[2020-06-08 12:00] VITALS: BP 122/60
--- NOTE | 2020-06-08 14:35 | NUR ---
Initial: Pt admit DX LLE cellulitis and neuropathy per MD note. PO 75-100% avg regular diet meeting needs. [facility] 06/07. No nutrition concerns at this time. Will continue to monitor. Rec: 1. continue regular diet 2. routine bowel care 3. scaled wt this admit Addendum: 06/08/20 at [address] Amended: Links added.
--- NOTE | 2020-06-08 18:16 | NUR ---
Problems reprioritized. Patient report given, questions answered & plan of care reviewed with EMILIANO Emmanuel.
--- NOTE | 2020-06-08 18:30 | NUR ---
Patient in room [facility]. I have received report from STEVAN/JUAN and had the opportunity to ask questions and assume patient care.
[2020-06-08 19:00] VITALS: BP 115/62
[2020-06-08] MEDS ORDERED: VANCOMYCIN LEVEL IV ONE (21:30)
[2020-06-08] MEDS: buPROPion SR 150mg tablet PO SCH (22:14)
[2020-06-08 23:00] VITALS: BP 136/75
[2020-06-09] MEDS: cefepime 1GM in D5W 50mL 50 ML IV SCH ×2 (00:37→10:16)
[2020-06-09] MEDS: HYDROcodone/acetaminophen 10/325mg tab PO PRN ×2 (05:17→09:08)
--- NOTE | 2020-06-09 06:28 | NUR ---
Problems reprioritized. Patient report given, questions answered & plan of care reviewed with GRACE.
--- NOTE | 2020-06-09 06:42 | NUR ---
Patient in room [facility]. I have received report from BRISEIDA CUMMINGS and had the opportunity to ask questions and assume patient care.
[2020-06-09 07:09] LABS: BASOPHILS # (AUTO) 0.1 X10'3 (0-0.2); BASOPHILS % (AUTO) 0.6 % (0-1); EOSINOPHILS # (AUTO) 0.2 X10'3 (0-0.9); EOSINOPHILS % (AUTO) 2.4 % (0-6); HEMATOCRIT 31.4 % (35.0-45.0); HEMOGLOBIN 10.5 g/dl (12.0-16.0); LYMPHOCYTES # (AUTO) 1.4 X10'3 (1.1-4.8); LYMPHOCYTES % (AUTO) 14.4 % (21-51); MEAN CORPUSCULAR HEMOGLOBIN 29.6 PG (27.0-31.0); MEAN CORPUSCULAR HGB CONC 33.3 g/dL (33.0-36.5); MEAN CORPUSCULAR VOLUME 89.1 FL (78-98); MEAN PLATELET VOLUME 10.2 FL (7.4-10.4); MONOCYTES # (AUTO) 0.7 X10'3 (0-0.9); MONOCYTES % (AUTO) 7.8 % (2-12); NEUTROPHILS # (AUTO) 7.2 X10'3 (1.8-7.7); NEUTROPHILS % (AUTO) 74.8 % (42-75); PLATELET COUNT 244 X10'3 (140-440); RED BLOOD COUNT 3.53 X10'6 (4.20-5.60); RED CELL DISTRIBUTION WIDTH 15.3 % (11.5-14.5); WHITE BLOOD COUNT 9.6 X10'3 (4.5-11.0)
[2020-06-09 07:56] LABS: ALANINE AMINOTRANSFERASE 85 U/L (12-78); ALBUMIN 1.7 G/DL (3.4-5.0); ALBUMIN/GLOBULIN RATIO 0.4 (1.1-1.5); ALKALINE PHOSPHATASE 183 IU/L (46-116); ANION GAP 9 (8-16); ASPARTATE AMINO TRANSFERASE 52 U/L (10-37); BILIRUBIN,TOTAL 0.5 MG/DL (0.1-1.0); BLOOD UREA NITROGEN 11 MG/DL (7-18); BUN/CREATININE RATIO 16.2 (6.6-38.0); CALCIUM 7.9 MG/DL (8.5-10.1); CHLORIDE 107 MMOL/L (99-107); CREATININE 0.68 MG/DL (0.40-0.90); GLUCOSE 104 MG/DL (70-104); MAGNESIUM 1.7 MG/DL (1.5-2.4); PHOSPHORUS 3.2 MG/DL (2.3-4.5); POTASSIUM 3.2 MMOL/L (3.5-5.1); SODIUM 143 MMOL/L (135-145); TOTAL CARBON DIOXIDE 26.6 MMOL/L (24-32); TOTAL PROTEIN 6.5 G/DL (6.4-8.2); eGFR 89 ML/MIN
[2020-06-09 08:00] VITALS: BP 134/74
[2020-06-09] MEDS: nystatin 15 GM powder TP SCH ×2 (08:00→13:00)
[2020-06-09] MEDS: K and/or MAG REPLACEMENT MC SCH ×2 (08:00)
[2020-06-09] MEDS: pantoprazole 40mg Tablet.DR PO SCH (08:00)
[2020-06-09] MEDS ORDERED: silver sulfadiazine cream 50gm TP SCH (08:00)
[2020-06-09] MEDS: VANCOMYCIN 1,500MG inj. 1,500 MG in normal saline 500ml IV soln 300 ML IV SCH (10:00)
[2020-06-09] MEDS: lactobacillus rhamnosus 10,000 MMU CELLS/CAPSULE PO SCH (10:14)
[2020-06-09] MEDS: gabapentin 300mg capsule PO SCH ×2 (10:15→13:00)
[2020-06-09] MEDS: FLUoxetine 20mg capsule PO SCH (10:15)
[2020-06-09] MEDS: buPROPion SR 150mg tablet PO SCH (10:15)
[2020-06-09] MEDS: nicotine 21mg patch - 24 hr TD SCH (10:16)
[2020-06-09] MEDS: heparin, porcine 5000 units/ml vial SQ SCH (10:19)
[2020-06-09] MEDS: furosemide 40mg/4ml inj IV SCH (10:21)
--- NOTE | 2020-06-09 10:39 | NUR ---
PAGER ID: [phone] MESSAGE: GRACE SURG [id number] RE:[id number] PATIENT BACK FROM [facility] AND IT IS POSTED IS OKAY TO FOR HER TO EAT? THANKS GRACE.
[2020-06-09 11:00] VITALS: BP 162/72
[2020-06-09] MEDS ORDERED: BUPR-72 PO (12:24)
[2020-06-09] MEDS ORDERED: SULF1TAB49 PO (12:24)
[2020-06-09] MEDS ORDERED: NICO-687 TD (12:24)
[2020-06-09] MEDS ORDERED: FURO40TA4 PO (12:24)
[2020-06-09] MEDS ORDERED: HYDR-3964 PO (12:24)
[2020-06-09] MEDS ORDERED: HYDR-3965 PO (13:39)
[2020-06-09] MEDS ORDERED: POTA10TA19 PO (15:14)
--- NOTE | 2020-06-09 15:40 | NUR ---
Patient discharged home and showed verbal understanding of discharge teaching at the time of discharge. Patient IV had come out prior to the discharge and site was [facility], Patient expressed verbal understanding of discharge teaching, and taken down to the lobby in wheelchair where family transported home by family.
== END 2020-06-09 15:35 | disposition home health service (06) | DRG 383 ==
LOC: ER 16:43 → ED HOLD 19:34 → SUR 3N 22:06
PROVIDERS: ADMIT Internal Medicine; ATTEND Internal Medicine
DX: L03.116 Cellulitis of left lower limb (principal); E66.01 Morbid (severe) obesity due to excess calories; F17.200 Nicotine dependence, unspecified, uncomplicated; I10 Essential (primary) hypertension; F32.9 Major depressive disorder, single episode, unspecified; G62.9 Polyneuropathy, unspecified; F41.1 Generalized anxiety disorder; K21.9 Gastro-esophageal reflux disease without esophagitis; E87.6 Hypokalemia; R74.01 Elevation of levels of liver transaminase levels; Z20.822 Contact with and (suspected) exposure to COVID-19; Z86.14 Personal history of Methicillin resistant Staphylococcus aureus infection; Z90.49 Acquired absence of other specified parts of digestive tract; Z90.710 Acquired absence of both cervix and uterus; Z79.899 Other long term (current) drug therapy; Z68.29 Body mass index [BMI] 29.0-29.9, adult; Z71.3 Dietary counseling and surveillance
CPT/HCPCS: 36415; 71045; 73630; 73720; 74181; 80053; 80202; 81001; 81025; 83036; 83605; 83735; 84100; 84145; 85025; 87040; 87070; 87075; 87081; 87102; 87635; 93005; 93926; 93970; 96365; 96375; 97110; 97116; 97161; 97530; 97535; 99285; A9575; G0378; J0692; J0696; J0780; J1644; J1940; J2270; J3370; J7030; J7040

== ENCOUNTER 2022-11-21 09:43 | Emergency (ER) | payer MEDICAID ==
[~2022-11-21] VITALS: Ht 167.6 cm; Wt 83.4 kg
[~2022-11-21 09:43] MED LIST changes: +ALBU6.7H14 IH; +APIX5TAB3 PO; +BUPR-74 PO; +FLUO-167 PO; +FLUT200B3 INH; +GABA300C PO; -IBUP-1986 PO; +LAN0.125T PO; +MIDO2.5T14 PO; +NYST15PO4 TOP; +POTA-192 PO; -TRAZ-256 PO
[2022-11-21 11:45] VITALS: BP 166/80; PULSE 79; RESP 19; TEMP 98.4; O2SAT 95
[2022-11-21 12:59] LABS: BASOPHILS # (AUTO) 0.1 X10'3 (0-0.2); BASOPHILS % (AUTO) 0.8 % (0-1); EOSINOPHILS # (AUTO) 0.5 X10'3 (0-0.9); EOSINOPHILS % (AUTO) 6.8 % (0-6); HEMATOCRIT 37.5 % (35.0-45.0); HEMOGLOBIN 12.3 g/dl (12.0-16.0); LYMPHOCYTES # (AUTO) 1.9 X10'3 (1.1-4.8); LYMPHOCYTES % (AUTO) 24.3 % (21-51); MEAN CORPUSCULAR HEMOGLOBIN 29.6 PG (27.0-31.0); MEAN CORPUSCULAR HGB CONC 32.7 g/dL (33.0-36.5); MEAN CORPUSCULAR VOLUME 90.4 FL (78-98); MEAN PLATELET VOLUME 8.7 FL (7.4-10.4); MONOCYTES # (AUTO) 0.6 X10'3 (0-0.9); MONOCYTES % (AUTO) 7.5 % (2-12); NEUTROPHILS # (AUTO) 4.7 X10'3 (1.8-7.7); NEUTROPHILS % (AUTO) 60.6 % (42-75); PLATELET COUNT 263 X10'3 (140-440); RED BLOOD COUNT 4.15 X10'6 (4.20-5.60); RED CELL DISTRIBUTION WIDTH 16.7 % (11.5-14.5); WHITE BLOOD COUNT 7.8 X10'3 (4.5-11.0)
[2022-11-21 13:13] LABS: ALANINE AMINOTRANSFERASE 48 U/L (12-78); ALBUMIN/GLOBULIN RATIO 0.5 (1.1-1.5); ALKALINE PHOSPHATASE 115 IU/L (46-116); ANION GAP 9 (8-16); ASPARTATE AMINO TRANSFERASE 39 U/L (10-37); BILIRUBIN,TOTAL 0.2 MG/DL (0.1-1.0); BLOOD UREA NITROGEN 15 MG/DL (7-18); BUN/CREATININE RATIO 17.4 (10.0-20.0); CALCIUM 9.3 MG/DL (8.5-10.1); CHLORIDE 103 MMOL/L (99-107); CREATININE 0.86 MG/DL (0.40-0.90); GLUCOSE 121 MG/DL (70-104); SODIUM 136 MMOL/L (135-145); TOTAL CARBON DIOXIDE 24.3 MMOL/L (24-32); TOTAL PROTEIN 9.1 G/DL (6.4-8.2); eCRCL 64 ML/MIN; eGFR 67 ML/MIN
== END 2022-11-21 13:49 | disposition home or self-care (01) ==
LOC: ER 09:44
DX: I87.2 Venous insufficiency (chronic) (peripheral) (principal); L03.116 Cellulitis of left lower limb; L03.115 Cellulitis of right lower limb; M54.9 Dorsalgia, unspecified; I10 Essential (primary) hypertension; F32.9 Major depressive disorder, single episode, unspecified; Z90.49 Acquired absence of other specified parts of digestive tract; Z90.710 Acquired absence of both cervix and uterus; Z98.890 Other specified postprocedural states; Z72.89 Other problems related to lifestyle; Z79.01 Long term (current) use of anticoagulants; Z79.899 Other long term (current) drug therapy
CPT/HCPCS: 36415; 80053; 83605; 84145; 85025; 99284